=== PATIENT | male | born 1975 | race Two or more races ===

== ENCOUNTER 2017-12-26 20:25 | Emergency (ER) | payer SELFPAY ==
[~2017-12-26] VITALS: Ht 172.7 cm; Wt 95.3 kg
[2017-12-26 20:48] VITALS: BP 133/77
[2017-12-27] MEDS ORDERED: AZITHROMYCIN 250 MG TAB PO ONE (00:30)
[2017-12-27] MEDS ORDERED: cefTRIAXone SOD 1,000 MG VL IM ONE (00:30)
== END 2017-12-27 01:42 | disposition home or self-care (01) ==
LOC: ER 20:25
DX: A64 Unspecified sexually transmitted disease (principal)
CPT/HCPCS: 96372; 99283; J0696

== ENCOUNTER 2021-12-09 17:28 | Emergency (ER) | payer MEDICAID, OTHER ==
[~2021-12-09] VITALS: Ht 172.7 cm; Wt 100.1 kg
[2021-12-09 17:47] VITALS: BP 166/102
[2021-12-09 19:09] LABS: Urine Bacteria FEW /hpf (None Seen); Urine Blood Negative /uL (Negative); Urine Mucus FEW (None Seen); Urine Specific Gravity 1.024 (1.001-1.035); Urine WBC 340 /hpf (0 - 3)
[2021-12-10] MEDS ORDERED: CEPH-510 PO (00:14)
[2021-12-10] MEDS ORDERED: DOXY-338 PO (00:14)
[2021-12-10] MEDS ORDERED: cefTRIAXone SOD 500 MG VL IM ONE (00:15)
== END 2021-12-10 00:46 | disposition home or self-care (01) ==
LOC: ER 17:28
DX: A64 Unspecified sexually transmitted disease (principal); N39.0 Urinary tract infection, site not specified; I10 Essential (primary) hypertension; Z79.2 Long term (current) use of antibiotics; Z79.899 Other long term (current) drug therapy
CPT/HCPCS: 81001; 96372; 99283; J0696

== ENCOUNTER → 2022-09-17 | Emergency (ER) | payer SELFPAY ==
[~2022-09-17] VITALS: Ht 172.7 cm; Wt 104.5 kg
[~2022-09-17] MED LIST: CEPH-510 PO; DOXY-447 PO
[2022-09-17 18:30] VITALS: BP 151/106
[2022-09-17 19:26] LABS: Urine Bacteria NONE SEEN /hpf (None Seen); Urine Blood Negative /uL (Negative); Urine Mucus FEW (None Seen); Urine WBC 61 /hpf (0 - 3)
== END | disposition left against medical advice (07) ==
LOC: ER 17:57
DX: R36.9 Urethral discharge, unspecified (principal); Z53.21 Procedure and treatment not carried out due to patient leaving prior to being seen by health care provider
CPT/HCPCS: 81001

== ENCOUNTER 2023-01-27 03:07 | Inpatient (IN) | payer MEDICAID ==
[~2023-01-27] VITALS: Ht 172.7 cm; Wt 136.4 kg
[2023-01-27 03:15] VITALS: PULSE 104; RESP 25; O2SAT 92
[2023-01-27] MEDS ORDERED: LORazepam 2MG/ML-1ML VIAL IV ONE (03:15)
[2023-01-27] MEDS ORDERED: LORazepam 2MG/ML-1ML VIAL IM ONE (03:30)
[2023-01-27] MEDS ORDERED: diphenhdrAMINE HCL 50 MG/1 ML VL IM ONE (03:30)
[2023-01-27] MEDS ORDERED: HALOPERIDOL LACTATE 5 MG/ML INJ VIAL IM ONE (03:30)
[2023-01-27 04:40] LABS: Basophils # (auto) 0.1 10 ^3/uL (0-0.2); Basophils % (auto) 0.5 % (0.0-2.0); Eosinophils # (auto) 0 10 ^3/uL (0-0.8); Eosinophils % (auto) 0.4 % (0.0-7.0); Hematocrit 48.8 % (41.0-53.0); Hemoglobin 16.2 g/dL (13.5-17.5); Lymphocytes # (auto) 3.3 10 ^3/uL (0.4-5.4); Mean Corpuscular Hemoglobin 31.5 pg (28.0-32.0); Mean Corpuscular Hgb Conc. 33.2 g/dL (32.0-36.0); Mean Corpuscular Volume 94.7 fL (80.0-100.0); Monocytes # (auto) 1.3 10 ^3/uL (0-1.3); Monocytes % (auto) 10.6 % (0.0-12.0); Neutrophils # (auto) 7.5 10 ^3/uL (1.6-8.6); Neutrophils % (auto) 61.5 % (37.0-80.0); Nucleated Red Blood Cells % 0.1 %; Red Blood Cells 5.15 10^6/uL (4.5-5.90); Red Cell Distribution Width 14.1 % (11.8-14.3); White Blood Cell 12.2 10^3/uL (4.4-10.8)
[2023-01-27 04:47] LABS: INR 1.04 (0.9-1.15); Partial Thromboplastin Time 36.3 SEC (24.5-34.5); Prothrombin Time 10.9 sec (9.3-11.8)
[2023-01-27 04:51] LABS: Alanine Aminotransferase 51 U/L (7-40); Alkaline Phosphatase 101 U/L (46-116); Anion Gap 11 (5-15); BUN/Creatinine Ratio 12.3 (10.0-20.0); Blood Alcohol 4.6 mg/dL (<10); Blood Urea Nitrogen 16 mg/dL (9-23); Carbon Dioxide 23 mmol/L (20-30); Chloride 109 mmol/L (98-107); Glucose 133 mg/dL (74-106); Magnesium 1.9 mg/dL (1.6-2.6); Potassium 3.6 mmol/L (3.5-5.1); Sodium 143 mmol/L (136-145)
[2023-01-27 04:52] LABS: Albumin 4.5 g/dL (3.2-4.8); Aspartate Aminotransferase 65 U/L (13-40)
[2023-01-27 04:53] LABS: Bilirubin, Total 1.7 mg/dL (0.2-1.0); Total Protein 7.8 g/dL (5.7-8.2)
[2023-01-27 05:05] LABS: Amphetamine Screen, Urine Pos (NEGATIVE); Barbiturate Scree,Urine Neg (NEGATIVE); Benzodiazephine Screen, Urine Neg (NEGATIVE); Cocaine Screen, Urine Neg (NEGATIVE); Opiate Scree,Urine Neg (NEGATIVE)
[2023-01-27 05:06] LABS: Cannabinoid Screen, Urine Neg (NEGATIVE); Phencyclidine Screen, Urine Pos (NEGATIVE)
[2023-01-27 05:22] LABS: Urine Bacteria NONE SEEN /hpf (None Seen); Urine Blood Negative /uL (Negative); Urine Clarity Clear (Clear); Urine Color Yellow (Yellow); Urine Hyaline Cast FEW /lpf (0 - 2); Urine Mucus FEW (None Seen); Urine Protein, UAD 1+ (Negative); Urine Specific Gravity 1.031 (1.001-1.035); Urine Urobilinogen Normal (Negative); Urine WBC 2 /hpf (0 - 3)
[2023-01-27] MEDS ORDERED: cefTRIAXone 1GM/50ML D5W 50 ML IV ONE (09:15)
[2023-01-27] MEDS ORDERED: SODIUM CHLORIDE 0.9% 1,000 ML IV ONE ×2 (09:15)
[2023-01-27] MEDS ORDERED: ONDANSETRON HCL 4 MG/2 ML VIAL IV PRN (10:15)
[2023-01-27] MEDS ORDERED: TEMAZEPAM 15 MG CAP PO PRN (10:15)
[2023-01-27] MEDS ORDERED: DOCUSATE SOD 100 MG CAP PO PRN (10:15)
[2023-01-27] MEDS: SODIUM CHLORIDE 0.9% 1,000 ML IV SCH ×2 (10:15→18:37)
[2023-01-27] MEDS ORDERED: NALOXONE HCL 1MG/ML 2ML SYRINGE IV ONE (10:15)
[2023-01-27 16:59] VITALS: PULSE 80; RESP 19; O2SAT 98
[2023-01-27 19:45] VITALS: O2SAT 98
[2023-01-28 01:20] VITALS: BP 108/68; PULSE 82; RESP 20; TEMP 97.5; O2SAT 95
[2023-01-28] MEDS: SODIUM CHLORIDE 0.9% 1,000 ML IV SCH ×2 (01:25→10:44)
[2023-01-28 04:42] VITALS: BP 110/69; PULSE 80; RESP 20; TEMP 97.5; O2SAT 98
[2023-01-28 09:00] VITALS: BP 155/86; PULSE 78; RESP 20; O2SAT 94
[2023-01-28 10:30] LABS: Basophils # (auto) 0.2 10 ^3/uL (0-0.2); Basophils % (auto) 2.4 % (0.0-2.0); Eosinophils # (auto) 0.1 10 ^3/uL (0-0.8); Hematocrit 44.4 % (41.0-53.0); Hemoglobin 14.9 g/dL (13.5-17.5); Lymphocytes # (auto) 2.5 10 ^3/uL (0.4-5.4); Lymphocytes % (auto) 24.7 % (10.0-50.0); Mean Corpuscular Hgb Conc. 33.6 g/dL (32.0-36.0); Monocytes # (auto) 0.7 10 ^3/uL (0-1.3); Monocytes % (auto) 6.8 % (0.0-12.0); Neutrophils # (auto) 6.5 10 ^3/uL (1.6-8.6); Neutrophils % (auto) 65.1 % (37.0-80.0); Red Blood Cells 4.67 10^6/uL (4.5-5.90); Red Cell Distribution Width 14.2 % (11.8-14.3)
[2023-01-28 10:52] LABS: Alanine Aminotransferase 38 U/L (7-40); Alkaline Phosphatase 86 U/L (46-116); Anion Gap 10 (5-15); Aspartate Aminotransferase 50 U/L (13-40); BUN/Creatinine Ratio 11.3 (10.0-20.0); Blood Urea Nitrogen 7 mg/dL (9-23); Calcium 8.3 mg/dL (8.5-10.1); Carbon Dioxide 22 mmol/L (20-30); Chloride 107 mmol/L (98-107); Glucose 75 mg/dL (74-106); Sodium 139 mmol/L (136-145)
[2023-01-28 10:53] LABS: Albumin 3.8 g/dL (3.2-4.8); Bilirubin, Total 2.8 mg/dL (0.2-1.0); Total Protein 6.7 g/dL (5.7-8.2)
== END 2023-01-28 11:30 | disposition left against medical advice (07) | DRG 52 ==
LOC: EDBD 03:07 → ER 03:07 → TELE 10:11 → TELE-WESTW 23:14
PROVIDERS: ADMIT Internal Medicine Pulmonary Disease; ATTEND Student in an Organized Health Care Education/Training Program
DX: G92.8 Other toxic encephalopathy (principal); R45.851 Suicidal ideations; I10 Essential (primary) hypertension; Z53.29 Procedure and treatment not carried out because of patient's decision for other reasons; D72.829 Elevated white blood cell count, unspecified; R74.01 Elevation of levels of liver transaminase levels; F19.90 Other psychoactive substance use, unspecified, uncomplicated; F10.90 Alcohol use, unspecified, uncomplicated; Y90.9 Presence of alcohol in blood, level not specified; E66.01 Morbid (severe) obesity due to excess calories; Z68.42 Body mass index [BMI] 45.0-49.9, adult; T40.415A Adverse effect of fentanyl or fentanyl analogs, initial encounter
CPT/HCPCS: 36415; 70450; 71045; 80053; 80307; 80320; 81001; 83036; 83605; 83735; 84443; 84484; 85025; 85610; 85730; 93005; G0378; J0696